=== PATIENT | male | born 1940 | race Hispanic/Latino ===

== ENCOUNTER 2018-02-03 11:52 | Day surgery (SDC) | payer MEDICARE, OTHER ==
[~2018-02-03 11:52] MED LIST: DILAUDID IV PRN; ZOFRAN IV PRN
[2018-02-03] MEDS ORDERED: VERSED IV NR (12:00)
[2018-02-03] MEDS ORDERED: LACTATED RINGERS 1,000 ML IV SCH ×2 (12:00)
[2018-02-03] MEDS ORDERED: ANCEF/STERILE WATER 2 GM/20 ML IV NR (14:00)
--- NOTE | 2018-02-03 14:57 | Anesthesia Consultation ---
Anesthesia Consult and Med Hx Date of service: 02/03/18 - Airway ROM Head & Neck: Adequate Mental/Hyoid Distance: Adequate Mallampati Class: Class III Intubation Access Assessment: Possibly Difficult - Pulmonary Exam CTA: Yes - Cardiac Exam Cardiac Exam: RRR - Pre-Operative Health Status ASA Pre-Surgery Classification: ASA3 Proposed Anesthetic Plan: General - Pulmonary Hx Smoking: Yes (STOPPED 1967) Hx Sleep Apnea: No (SINAN PRE SCREEN HIGH RISK) - Cardiovascular System Hx Hypertension: Yes (1994) - Central Nervous System CVA: No (TIA 2013/ NO DEFICITS/ ON PLAVIX) - Other Systems Hx Cancer: No
--- NOTE | 2018-02-03 14:57 | Anesthesia Day of Surgery ---
Anesthesia Day of Surgery - Day of Surgery Patient Examined: Yes Patient H&P Reviewed: Yes Patient is NPO: Yes
--- NOTE | 2018-02-03 15:25 | Short Stay Summary ---
Short Stay Documentation Date of service: 02/03/18 - History H&P: obtained from office - Allergies and Medications Current Medications: Allergies No Known Allergies Allergy (Verified 02/01/18 16:46) Home Medications Medication Instructions Recorded Confirmed Last Taken Type B-Complex with Vitamin C [Vitamin 1 each PO DAILY 02/01/18 02/01/18 02/03/18 08:30 History B-Complex with Vit C] Bimatoprost [Lumigan 0.01%] 1 drop OP QPM 02/01/18 02/01/18 02/03/18 08:30 History Cholecalciferol (Vitamin D3) 2,000 unit PO DAILY 02/01/18 02/01/18 02/03/18 08:30 History [Vitamin D3] Clopidogrel Bisulfate [Plavix] 75 mg PO DAILY 02/01/18 02/03/18 01/29/18 History Lactobacillus Acidophilus/Fos 1 each PO DAILY 02/01/18 02/01/18 02/03/18 08:30 History [Acidophilus Probiotic Tablet] Losartan [Cozaar] 25 mg PO QHS 02/01/18 02/03/18 02/02/18 History Metoprolol [Lopressor] 25 mg PO DAILY 02/01/18 02/01/18 02/03/18 08:30 History Active Medications Cefazolin Sodium (Ancef/Sterile Water 2 Gm/20 Ml) 2 gm IV PREOP NR Stop: 02/03/18 23:59 Hydromorphone HCl (Dilaudid) 0.5 mg IV Q10MIN PRN PRN Reason: Pain , Severe (7-10) Stop: 02/03/18 23:00 Lactated Ringer's (Lactated Ringers) 1,000 mls @ 100 mls/hr IV DIRECT LEROY Last Admin: 02/03/18 14:10 Dose: 100 mls/hr Documented by: Midazolam HCl (Versed) 2 mg IV PREOP NR Stop: 02/03/18 23:59 Ondansetron HCl (Zofran) 4 mg IV ONCE PRN PRN Reason: Nausea And Vomiting - Brief post op/procedure progress note Date of procedure: 02/03/18 Pre-op diagnosis: right uvj stone 5mm Post-op diagnosis: other (right hydro, distal uret stenosis) Procedure: right urs, jonathan rpg, right passive dilation, right stent [id number] staged for future removal Anesthesia: GETA Findings: distal uret stenosis, right hydro Surgeon: SANTOSH DOUGHERTY Estimated blood loss: minimal Pathology: none Condition: stable - Hospital course Hospital course: [facility]pac[place]ome - Disposition Condition at discharge: Good Disposition: DC-01 TO HOME OR SELFCARE Short Stay Discharge Plan Activity: advance as tolerated Diet: advance as tolerated Follow up with: SANTOSH DOUGHERTY MD [Staff Physician] - 10 Days
[2018-02-03] MEDS ORDERED: DIPRIVAN 10 MG/ML IV ONE (16:02)
[2018-02-03] MEDS ORDERED: XYLOCAINE MPF 2% ONE (16:03)
[2018-02-03] MEDS ORDERED: DILAUDID ONE (16:04)
[2018-02-03] MEDS ORDERED: DECADRON ONE (16:04)
[2018-02-03] MEDS ORDERED: ZOFRAN ONE (16:04)
[2018-02-03] MEDS ORDERED: HEPARIN 10,000 UNITS/10 ML IP ONE (16:08)
[2018-02-03] MEDS ORDERED: HEPARIN 10,000 UNITS/10 ML ONE (16:16)
[2018-02-03] MEDS ORDERED: WATER FOR IRRIG STERILE IR ONE (17:01)
--- NOTE | 2018-02-03 17:38 | Post Anesthesia Evaluation ---
- Post Anesthesia Evaluation Patient Participated: Yes Airway Patent: Yes Stable Respiratory Function: Yes Nausea/Vomiting: No Temp > 96.8F: Yes Pain Manageable: Yes Adequeate Hydration: Yes Anesthesia Complications: No
[2018-02-03 22:34] VITALS: BP 158/86
--- NOTE | 2018-02-07 07:50 | Fluoroscopy Report ---
FLUOROSCOPY RETROGRADE UROGRAPHY: HISTORY: Right hydronephrosis. FINDINGS: Fluoroscopy was provided by radiology during retrograde urography by the urologist. 12 fluoroscopic images were captured. There is normal filling of the left ureter and collecting system. Images of the right collecting system demonstrates mild pyelocaliectasis in the right kidney. No obvious obstructing stone is identified on the given images. Right ureteroscopy was performed per the operative notes. A right ureteral stent was placed which adequately drains the right collecting system on the final image. IMPRESSION: Right ureteral stent placement.
--- NOTE | 2018-03-07 09:55 | Operative Report ---
PREOPERATIVE DIAGNOSIS: Right ureterovesical junction 5 mm stone. POSTOPERATIVE DIAGNOSES: Right hydronephrosis, distal ureteral stenosis. PROCEDURE: Right ureteroscopy, bilateral RPG, right passive dilation, right stent placement, staged for future removal. FINDINGS: Distal ureteral stenosis, right hydronephrosis. SURGEON: Oli Boss M.D. CLINICAL INDICATIONS: The patient counseled RCBA, antibiotics, SCD. Planned procedure for stone. Procedure was counseled, desired to proceed. Antibiotics, SCD. DESCRIPTION OF PROCEDURE: The patient transferred to OR suite in supine position, anesthesia, dorsal lithotomy, prepped and draped in standard fashion. A 22-Citizen [place] scope passed, mild large lateral median lobe. Pancystoscopy 30 and 70 degree lens, no tumor, left retrograde pyelogram, 8-[place]izen [place] cone tipped catheter, within normal limits. Right retrograde demonstrated mild hydroureter and there was distal stenosis, unclear stone. Glidewire passed. We were able to pass the scope and passively dilate the distal ureter. Scope was then passed to the proximal ureter up towards the UPJ. No stones identified. Scope was withdrawn. It was noted that the distal stenotic area had been passively dilated with the [facility] small scope, this was withdrawn. A 6-Citizen [place] double-J stent passed over the wire under direct and fluoroscopic visualization. When wire and string removed, nice proximal and distal J. Cystoscope removed. Staged for future removal. Exam under anesthesia, bilateral prostate, testicles, no nodules, no masses. Digital rectal exam, no nodules. The patient awakened and transferred to PACU in good and stable condition. JOB# [id number] ATS/NTS
== END 2018-02-03 11:53 | disposition home or self-care (01) ==
LOC: OR 11:52
PROVIDERS: ATTEND Urology
DX: N13.5 Crossing vessel and stricture of ureter without hydronephrosis (principal); N13.4 Hydroureter; M17.0 Bilateral primary osteoarthritis of knee; I10 Essential (primary) hypertension; M16.0 Bilateral primary osteoarthritis of hip; E78.00 Pure hypercholesterolemia, unspecified; Z79.899 Other long term (current) drug therapy; Z79.01 Long term (current) use of anticoagulants; Z98.41 Cataract extraction status, right eye; Z87.891 Personal history of nicotine dependence; Z86.711 Personal history of pulmonary embolism; Z86.73 Personal history of transient ischemic attack (TIA), and cerebral infarction without residual deficits
CPT/HCPCS: 52332; 52341; 74420; A4217; C1758; C1769; C2617; J0690; J1100; J1170; J1644; J2405; J2704; J7120; Q9967